=== PATIENT | male | born 1965 | race Caucasian/White ===

== ENCOUNTER 2016-05-09 07:21 | Day surgery (SDC) | payer BC, OTHER ==
[2016-04-20 15:21] VITALS: BMI 38.0
--- NOTE | 2016-04-27 10:17 | DIAGNOSTIC IMAGING REPORT ---
CHEST 2 VIEWS ROUTINE CLINICAL HISTORY: Preoperative chest COMPARISON STUDY: 02/09/2014 FINDINGS: The heart remains borderline enlarged. There is no failure. There is no focal pulmonary consolidation. There are no pleural effusions.[ IMPRESSION: No active disease in the chest. Electronically signed by: Prem Garcia M.D. 04/27/2016 10:15 AM Dictated Date/Time: 04/27/2016 10:14 AM
[2016-04-27 11:23] LABS: BASO % 0.4 %; BASO ABS # 0.03 K/uL (0-0.2); COMPLETE YES; EOS % 3.6 %; HEMATOCRIT 41.9 % (42-52); IG% 0.2 %; LYMPH ABS # 2.52 K/uL (1.2-3.4); MEAN CELL VOLUME 89.5 fL (80-100); MEAN CORPUSCULAR HEMOGLOBIN 31.6 pg (25-34); MEAN CORPUSCULAR HGB CONC 35.3 g/dl (32-36); MEAN PLATELET VOLUME 9.7 fL (7.4-10.4); MONO % 8.1 %; NEUT % 57.7 %; PLATELET COUNT 250 K/uL (130-400); RED BLOOD COUNT 4.68 M/uL (4.7-6.1); WHITE BLOOD COUNT 8.39 K/uL (4.8-10.8)
[2016-04-27 11:57] LABS: CREATININE 0.83 mg/dl (0.60-1.40)
[2016-04-27 12:01] LABS: PROSTATE SPECIFIC ANTIGEN 1.85 ng/ml (0.000-4.000)
[~2016-05-09] VITALS: Ht 182.9 cm; Wt 127.3 kg
[~2016-05-09 07:21] MED LIST: LACTATED RINGER'S 1000ML 1,000 ML IV SCH
--- NOTE | 2016-05-09 07:47 | History & Physical Bridge Note ---
H&P Re-Evaluation Bridge Note: I have examined the patient, reviewed the History & Physical and in the interval since the performance of the History & Physical I have noted the following changes of clinical significance: No changes noted SO at bedside, pt marked
[2016-05-09 07:53] VITALS: BP 148/84; PULSE 72; TEMP 37.1; O2SAT 93; Ht 182.9 cm; Wt 127.3 kg
[2016-05-09] MEDS ORDERED: MIDAZOLAM HCL 1 MG/ML 2ML VIAL ONE (08:46)
[2016-05-09] MEDS ORDERED: FENTANYL CITRATE INJ 50 MCG/1 ML 2 ML VIAL ONE ×3 (08:46→10:51)
[2016-05-09] MEDS ORDERED: DEXAMETHASONE SOD INJ 4 MG/ML VIAL ONE ×2 (09:04→09:41)
[2016-05-09] MEDS ORDERED: LIDOCAINE HCL 2% 2 ML VIAL (20MG/ML) ONE ×2 (09:04→09:56)
[2016-05-09] MEDS ORDERED: PROPOFOL IV EMULSION 10 MG/ML 20 ML VIAL IV ONE ×7 (09:04→10:14)
[2016-05-09] MEDS ORDERED: ONDANSETRON INJ 2 MG/ML 2 ML VIAL ONE ×2 (09:04→10:17)
[2016-05-09] MEDS ORDERED: PROMETHAZINE HCL INJ 25 MG in SODIUM CHLORIDE 0.9% 50ML 50 ML IV ONE (09:30)
[2016-05-09] MEDS ORDERED: CEFAZOLIN SOD 1 GM VIAL ONE (09:41)
[2016-05-09] MEDS ORDERED: SUCCINYLCHOLINE 100MG/5ML SYR IV ONE (09:56)
[2016-05-09] MEDS ORDERED: ROCURONIUM BROMIDE 10 MG/ML 5 ML VIAL ONE (10:18)
[2016-05-09] MEDS ORDERED: KETOROLAC TROMETHAMINE 30 MG/ML VIAL ONE (10:19)
[2016-05-09] MEDS ORDERED: BUPIVACAINE 0.5 % 5 MG/1 ML MPF 30ML VIAL INJ ONE (10:26)
[2016-05-09] MEDS ORDERED: BACITRACIN 50000 UNIT VIAL IR ONE (10:26)
[2016-05-09] MEDS ORDERED: NEOSTIGMINE METHYLSULFATE 5 MG/5 ML SYR ONE (10:32)
[2016-05-09] MEDS ORDERED: GLYCOPYRROLATE INJ 0.2 MG/ML VIAL ONE (10:32)
--- NOTE | 2016-05-09 10:39 | [facility] Post Operative Brief Note ---
Immediate Operative Summary Operative Date May 09, 2016. Pre-Operative Diagnosis Bilateral Inguinal Hernia Post-Operative Diagnosis Bilateral Inguinal Hernia right direct and large lipoma cord to scrotum Procedure(s) Performed Right Open Direct Inguinal Hernia Repair with Mesh, Excision of Large Lipoma of the Cord Surgeon Dr. Heath Marklogic Developer Surgeon(s) 0 Estimated Blood Loss 5 mL Findings large lipoma cord extending to scrotum incarcerated ext ring Specimens A: Lipoma of the Cord
[2016-05-09] MEDS ORDERED: LACTATED RINGER'S 1000ML 1,000 ML IV SCH (10:40)
[2016-05-09] MEDS ORDERED: OXYC-57 PO (10:43)
--- NOTE | 2016-05-09 10:44 | Discharge Instructions ---
Discharge Instructions Visit Reason for Visit: Right Inguinal Hernia Discharge Discharge Diagnosis / Problem: s/p right ing hernia repair open Discharge Goals Goal(s): Decrease discomfort Activity Recommendations Lifting Limitations: no more than 10 pounds Exercise/Sports Limitations: none May Resume Sexual Activity: when tolerated Shower/Bathe: tomorrow Driving or Machine Use: resume 3 days after discharge Anesthesia . Post Anesthesia Instructions: If you have had General Anesthesia or IV Sedation: * Do not drive today. * Resume driving when surgeon permits. * Do not make important decisions or sign legal documents today. * Call surgeon for: 1. Temperature elevations greater than 101 degrees F. 2. Uncontrollable pain. 3. Excessive bleeding. 4. Persistent nausea and vomiting. 5. Medication intolerance (nausea, vomiting or rash). * For nausea and vomiting use only clear liquids such as: tea, soda, bouillon until nausea subsides, then gradually increase diet as tolerated. * If you have any concerns or questions, call your surgeon's office. If physician is unavailable and it is an emergency, call 911 or go to the nearest emergency room. . Instructions / Follow-Up Instructions / Follow-Up call [phone] for any problems return to office 1 week keep ice bag for 24 hr Procedures Procedures Performed: Right Open Direct Inguinal Hernia Repair with Mesh, Excision of Large Lipoma of the Cord Medical Emergencies . Who to Call and When: Medical Emergencies: If at any time you feel your situation is an emergency, please call 911 immediately. . Non-Emergent Contact . . "Provider Documentation" section prepared by Erick Heath.
[2016-05-09] MEDS ORDERED: OXYCODONE/ACETAMINOPHEN 5-325 TAB PO PRN (10:45)
[2016-05-09] MEDS ORDERED: HYDROmorphone INJ 2 MG/ML SYR/VIAL IV PRN (10:45)
[2016-05-09] MEDS ORDERED: ONDANSETRON INJ 2 MG/ML 2 ML VIAL IV PRN ×2 (10:45→11:15)
[2016-05-09] MEDS ORDERED: ALBUTEROL HFA INHALER 8.5 GM INH ONE (11:08)
[2016-05-09] MEDS ORDERED: HYDROmorphone INJ 1 MG/ML SYR IV PRN (11:15)
[2016-05-09] MEDS ORDERED: NALOXONE HCL 0.4 MG/1 ML VIAL/CARP IV PRN (11:15)
[2016-05-09] MEDS ORDERED: FLUMAZENIL 0.1 MG/1 ML 10 ML VIAL IV PRN (11:15)
[2016-05-09] MEDS ORDERED: ATROPINE SULFATE 0.1 MG/ML 5ML SYR IV PRN (11:15)
[2016-05-09] MEDS ORDERED: LABETALOL HCL IV 5 MG/ML 20ML IV PRN (11:15)
[2016-05-09] MEDS ORDERED: EpHEDrine SULFATE INJ 50 MG/ML AMP IV PRN (11:15)
--- NOTE | 2016-05-09 11:51 | OPERATIVE REPORT ---
DATE OF OPERATION: 05/09/2016 SURGEON: Dr. Heath. PREOPERATIVE DIAGNOSIS: Large right inguinal hernia. POSTOPERATIVE DIAGNOSIS: Large right direct inguinal hernia with an extensive large lipoma of the cord to the scrotum. PROCEDURE: Right direct inguinal hernia repair and excision lipoma of the cord with mesh reinforcement. SUMMARY: The patient was brought into the operating room theater. Right lower quadrant was prepped with Betadine solution and properly draped just down to the scrotal area. Preemptive analgesia 0.5% Marcaine without epinephrine was used to infiltrate the skin 2 fingerbreadths medial anterior superior iliac crest. Skin wheal was raised all the way to the subfascial to the external oblique. An oblique incision was made, deepened through subcutaneous tissue. A significant amount of fatty tissue was encountered in this gentleman until we were able to get to the external oblique, which we dissected out to the external ring. More local was used underneath the external oblique, which was opened along the course of its fibers. No definite nerve could be identified. As we dissected all the way down to the external oblique area we could see a significant amount of fatty tissue coming through the external ring, in fact some of it was incarcerated. We were able then to elevate the cord and its structures out of the wound and identified that the patient had a significant lipoma of the cord extending probably to the top of the scrotum as we lifted it out, probably about 25 cm, and multifenestrations around the internal ring that once we were done, we had a significant amount of fatty tissue, probably the size of a softball, that was removed. The patient had no indirect hernia around the internal ring. We then reapproximated some of the transversalis fascia to get some of the fatty tissue out of the way, as was the direct area. I then used a piece of Marlex mesh, 3 x 6, cut part of it out to make a circular cylinder out of it, probably a centimeter or 3 in diameter and placed it in the direct area and held it in place with a tie of 3-0 silk. The Marlex mesh was then brought up onto the field and onlayed to the symphysis pubis, shelving portion of the inguinal ligament above the conjoined tendon, all the way beyond the internal ring, and place subfascial to the external oblique. Prior to closing completely the indirect ring, we then used 3-0 silk suture to take a bite of the onlay and on the plug tying it together. The area was checked for hemostasis and appeared satisfactory. We returned the cord and its structure along on top of the mesh using a topical local and then we basically closed the external oblique over the cord and its structure mesh completely exteriorizing from subcutaneous tissue by closing the external oblique with 3-0 silk, 2-0 Dexon and juani for skin edges. Dressings applied. The procedure was tolerated well by the patient. Estimated blood loss approximately 5 mL. The patient was taken to recovery room in good condition. I attest to the content of the Intraoperative Record and any orders documented therein. Any exceptions are noted below. MTDD
--- NOTE | 2016-05-09 11:58 | Anesthesiology Progress Note ---
Anesthesia Post Op Note Date & Time May 09, 2016 at 11:57 Vital Signs Vital Signs Past 12 Hours Date Time Temp Pulse Resp B/P Pulse Ox O2 Delivery O2 Flow Rate FiO2 05/09/16 11:45 57 14 124/79 97 Nasal Cannula 2 05/09/16 11:30 37.0 62 12 122/78 94 Nasal Cannula 3 05/09/16 11:20 60 15 126/74 92 Nasal Cannula 3 05/09/16 11:10 66 18 137/81 97 Mask 10 05/09/16 11:03 64 15 125/91 98 Mask 10 05/09/16 10:59 140/ 05/09/16 10:56 36.0 66 18 99 Mask 10 05/09/16 07:53 37.1 72 20 148/84 93 Room Air Notes Mental Status: alert / awake / arousable, participated in evaluation Pt Amnestic to Procedure: Yes Nausea / Vomiting: adequately controlled Pain: adequately controlled Airway Patency, RR, SpO2: stable & adequate BP & HR: stable & adequate Hydration State: stable & adequate Anesthetic Complications: no major complications apparent
[2016-05-09 12:00] VITALS: BP 125/76; PULSE 80; TEMP 36.8; O2SAT 97
[2016-05-09 12:31] VITALS: BP 125/76; PULSE 68; TEMP 36.8; O2SAT 96
[2016-05-09 13:02] VITALS: BP 137/76; PULSE 66; O2SAT 95
== END 2016-05-09 13:25 | disposition home or self-care (01) ==
LOC: C.ACU 07:21
PROVIDERS: ATTEND Surgery
DX: K40.90 Unilateral inguinal hernia, without obstruction or gangrene, not specified as recurrent (principal); D17.6 Benign lipomatous neoplasm of spermatic cord; G47.33 Obstructive sleep apnea (adult) (pediatric); E66.9 Obesity, unspecified; Z98.818 Other dental procedure status; Z98.890 Other specified postprocedural states; Z90.89 Acquired absence of other organs; Z82.49 Family history of ischemic heart disease and other diseases of the circulatory system; Z80.0 Family history of malignant neoplasm of digestive organs

== ENCOUNTER 2016-09-26 15:30 | Emergency (ER) | payer BC ==
[~2016-09-26] VITALS: Ht 182.9 cm; Wt 131.4 kg
[~2016-09-26 15:30] MED LIST changes: -LACTATED RINGER'S 1000ML 1,000 ML IV SCH; +OXYC-57 PO
[2016-09-26 15:43] VITALS: TEMP 36.8; Ht 182.9 cm; Wt 131.4 kg
[2016-09-26] MEDS ORDERED: LORAZEPAM 2 MG/ML 1 ML VIAL IV STA (16:32)
[2016-09-26] MEDS ORDERED: SODIUM CHLORIDE 0.9% 1000ML 1,000 ML IV STA (16:32)
[2016-09-26] MEDS ORDERED: IBUP-103 PO (16:36)
[2016-09-26 17:07] LABS: BASO % 0.2 %; BASO ABS # 0.02 K/uL (0-0.2); COMPLETE YES; EOS % 1.1 %; IG% 0.3 %; LYMPH % 22.2 %; LYMPH ABS # 2.08 K/uL (1.2-3.4); MEAN CELL VOLUME 91.3 fL (80-100); MEAN CORPUSCULAR HEMOGLOBIN 32.2 pg (25-34); MEAN CORPUSCULAR HGB CONC 35.2 g/dl (32-36); MEAN PLATELET VOLUME 9.3 fL (7.4-10.4); MONO % 8.3 %; NEUT % 67.9 %; PLATELET COUNT 228 K/uL (130-400); WHITE BLOOD COUNT 9.37 K/uL (4.8-10.8)
[2016-09-26 17:14] LABS: INR 1.1 (0.9-1.1); PROTHROMBIN TIME (PATIENT) 11.3 SECONDS (9.0-12.0)
[2016-09-26 17:20] LABS: URINE APPEARANCE CLEAR (CLEAR); URINE BILIRUBIN NEG (NEG); URINE COLOR YELLOW; URINE NITRITE NEG (NEG); URINE PH 5.5 (4.5-7.5); URINE SPECIFIC GRAVITY 1.032 (1.000-1.030); UROBILINOGEN NEG (NEG)
[2016-09-26 17:21] LABS: MANUAL MICROSCOPIC REQUIRED? NO; REVIEW REQ? NO
[2016-09-26 17:40] LABS: BUN/CREATININE RATIO 21.5 (10-20); CALCIUM 8.5 mg/dl (8.5-10.1); POTASSIUM 3.8 mmol/L (3.5-5.1)
[2016-09-26] MEDS ORDERED: GADAVIST IV PRN (18:15)
--- NOTE | 2016-09-26 18:28 | DIAGNOSTIC IMAGING REPORT ---
Brain MRI WITH AND WITHOUT CONTRAST HISTORY: Amnesia. Evaluate for mass, hemorrhage or pathology TECHNIQUE: Multiplanar multisequence MRI of the brain was performed both before and after the intravenous administration of contrast. COMPARISON STUDY: None. FINDINGS: There is no mass, hematoma, midline shift, acute infarct. The midline structures are intact. There are few punctate foci of T2 hyperintensity seen within the white matter of the frontal lobes. This is nonspecific but favors minimal microvascular ischemic change. Small retention cysts within the left maxillary sinus and mild mucosal thickening within the ethmoid air cells. The mastoid air cells are clear. The major vascular flow-voids at the skull base are well-maintained. The ventricles and sulci are within normal limits for age. IMPRESSION: No acute intracranial abnormality. A few scattered foci of T2 hyperintensity seen within the periventricular and subcortical white matter are nonspecific but favor minimal microvascular ischemic change. Electronically signed by: Fidel Spencer M.D. 09/26/2016 6:27 PM Dictated Date/Time: 09/26/2016 6:22 PM
--- NOTE | 2016-09-26 18:31 | DIAGNOSTIC IMAGING REPORT ---
Brain MRA HISTORY: Amnesia. Evaluate for aneurysm, mass, or pathology TECHNIQUE: 3-D [id number] MRA of the brain was performed without contrast. COMPARISON STUDY: None. FINDINGS: Visualized intracranial internal carotid arteries, distal vertebral arteries, and basilar artery are widely patent. There is no significant stenosis, occlusion, or aneurysm seen within the bilateral ACAs, MCAs, or mushroom grower. IMPRESSION: No significant stenosis, occlusion, or aneurysm within the y[place] of [place]. Electronically signed by: Fidel Spencer M.D. 09/26/2016 6:30 PM Dictated Date/Time: 09/26/2016 6:27 PM
[2016-09-26] MEDS ORDERED: ASPIRIN 81 MG CHEW PO STA (19:08)
--- NOTE | 2016-09-26 20:04 | Medical Consult ---
Consultation Date of Consultation: Sep 26, 2016. Attending Physician: Reason for Consultation: TGA History of Present Illness 51 y/o M who denies active medical issues. Beginning at approximately 8:30 AM he performed some routine tasks such as taking his daughter to summer camp and then meeting with a student of his. He travelled back home at approximately 12: 30 PM and began to realize that he had no recollection of events over the last 4 hours. At that point he had regained his memory and orientation and presented to the hospital. The pt had a complete CVA w/u including an MRI/MRA and carotid dopplers. There was no evidence of acute or prior CVA. He had no focal deficits on exam and was not hypertensive or tachycardic. The case was discussed with a neurologist exhibition designer and the pt will be discharged for outpt f/ u. He has been instructed to take a daily ASA and hold any NSAID use pending follow up. 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 Smoking Status: Current Every Day Smoker Marital Status: Occupation Status: employed Allergies Coded Allergies: No Known Allergies (Unverified , 09/26/16) Home Medications Advil PRN Current Inpatient Medications Current Inpatient Medications Medications (Trade) Dose Ordered Sig/Trey Route Start Time Stop Time Status Last Admin Dose Admin Sodium Chloride 1,000 ml @ 150 mls/hr [id number] STAT IV 09/26/16 16:32 09/26/16 23:11 09/26/16 17:02 150 MLS/HR Gadobutrol (Gadavist) 12 mmol UD PRN IV 09/26/16 18:15 09/30/16 18:14 Review of Systems Constitutional: No fever, No chills, No sweats Eyes: No worsening of vision, No eye pain ENT: No hearing loss, No unusual epistaxis, No nasal symptoms Respiratory: No cough, No sputum, No wheezing Cardiovascular: No chest pain, No orthopnea, No PND Abdomen: No pain, No nausea, No vomiting Musculoskeletal: No joint pain, No muscle pain Genitourinary - Male: No hematuria, No dysuria, No urinary frequency, No urinary urgency Neurologic: + memory loss, No paralysis, No weakness Psychiatric: No depression symptoms, No anhedonism Endocrine: No fatigue, No excessive thirst Hematologic / Lymphatic: No abnormal bleeding/bruising, No clotting problems Integumentary: No rash, No itch Allergic / Immunologic: No environmental allergies, No seasonal allergies, No pet sensitivities Physical Exam Date Time Temp Pulse Resp B/P (MAP) Pulse Ox O2 Delivery O2 Flow Rate FiO2 09/26/16 19:15 77 18 142/98 93 Room Air 09/26/16 17:22 88 18 144/89 93 Room Air 09/26/16 15:43 36.8 83 20 139/91 96 Room Air General Appearance: WD/WN, no apparent distress Head: normocephalic, atraumatic Eyes: normal inspection ENT: normal ENT inspection, hearing grossly normal, TMs normal, pharynx normal Neck: supple, no JVD Respiratory/Chest: chest non-tender, lungs clear, normal breath sounds, no respiratory distress, no accessory muscle use Cardiovascular: regular rate, rhythm, no edema, no gallop, no JVD, no murmur, normal peripheral pulses Abdomen/GI: normal bowel sounds, non tender, soft Back: normal inspection, no CVA tenderness, no muscle spasm Extremities/Musculoskelatal: normal inspection, no calf tenderness, normal capillary refill, no pedal edema, normal range of motion Neurologic/Psych: drywall finisher II-XII nml as tested, no motor/sensory deficits, alert, normal mood/affect, normal reflexes, oriented x 3 Skin: normal color, warm/dry, no rash Laboratory Results Last 24 Hours Test 09/26/16 16:49 09/26/16 17:03 White Blood Count 9.37 K/uL Red Blood Count 4.60 M/uL Hemoglobin 14.8 g/dL Hematocrit 42.0 % Mean Corpuscular Volume 91.3 fL Mean Corpuscular Hemoglobin 32.2 pg Mean Corpuscular Hemoglobin Concent 35.2 g/dl Platelet Count 228 K/uL Mean Platelet Volume 9.3 fL Neutrophils (%) (Auto) 67.9 % Lymphocytes (%) (Auto) 22.2 % Monocytes (%) (Auto) 8.3 % Eosinophils (%) (Auto) 1.1 % Basophils (%) (Auto) 0.2 % Neutrophils # (Auto) 6.36 K/uL Lymphocytes # (Auto) 2.08 K/uL Monocytes # (Auto) 0.78 K/uL Eosinophils # (Auto) 0.10 K/uL Basophils # (Auto) 0.02 K/uL RDW Standard Deviation 43.5 fL RDW Coefficient of Variation 13.3 % Immature Granulocyte % (Auto) 0.3 % Immature Granulocyte # (Auto) 0.03 K/uL Prothrombin Time 11.3 SECONDS Prothromb Time International Ratio 1.1 Activated Partial Thromboplast Time 26.4 SECONDS Partial Thromboplastin Ratio 1.0 Sodium Level 144 mmol/L Potassium Level 3.8 mmol/L Chloride Level 110 mmol/L Carbon Dioxide Level 27 mmol/L Anion Gap 7.0 mmol/L Blood Urea Nitrogen 21 mg/dl Creatinine 1.00 mg/dl Est Creatinine Clear Calc Drug Dose 119.8 ml/min Estimated GFR () 99.2 Estimated GFR (Non- 85.5 BUN/Creatinine Ratio 21.5 Random Glucose 87 mg/dl Calcium Level 8.5 mg/dl Total Bilirubin 0.5 mg/dl Direct Bilirubin 0.1 mg/dl Aspartate Amino Transf (AST/SGOT) 25 U/L Alanine Aminotransferase (ALT/SGPT) 41 U/L Alkaline Phosphatase 58 U/L Total Protein 7.1 gm/dl Albumin 3.9 gm/dl Urine Color YELLOW Urine Appearance CLEAR Urine pH 5.5 Urine Specific [place] 1.032 Urine Protein NEG Urine Glucose (UA) NEG Urine Ketones 1+ Urine Occult Blood TRACE Urine Nitrite NEG Urine Bilirubin NEG Urine Urobilinogen NEG Urine Leukocyte Esterase NEG Urine WBC (Auto) 1-5 /hpf Urine RBC (Auto) 5-10 /hpf Urine Hyaline Casts (Auto) 1-5 /lpf Urine Epithelial Cells (Auto) 5-10 /lpf Urine Bacteria (Auto) NEG Bedside Glucose 88 mg/dl Assessment & Plan 51 y/o M who denies active medical issues. Beginning at approximately 8:30 AM he performed some routine tasks such as taking his daughter to summer camp and then meeting with a student of his. He travelled back home at approximately 12: 30 PM and began to realize that he had no recollection of events over the last 4 hours. At that point he had regained his memory and orientation and presented to the hospital. The pt had a complete CVA w/u including an MRI/MRA and carotid dopplers. There was no evidence of acute or prior CVA. He had no focal deficits on exam and was not hypertensive or tachycardic. The case was discussed with a neurologist exhibition designer and the pt will be discharged for outpt f/ u. He has been instructed to take a daily ASA and hold any NSAID use pending follow up.
--- NOTE | 2016-09-26 21:03 | DIAGNOSTIC IMAGING REPORT ---
BILATERAL CAROTID DOPPLER STUDY HISTORY: Amnesia. Stroke symptoms. COMPARISON: None. TECHNIQUE: Real-time, grayscale, and color Doppler sonography of the carotid arteries was performed. Imaging reviewed in the transverse and longitudinal planes. All measurements were calculated based on NASCET criteria. FINDINGS: Antegrade flow is seen in the bilateral vertebral arteries. The brachial pressures are hemodynamically similar. The peak systolic velocity within the right ICA is 109 cm/s. The right systolic ratio is 1. The peak systolic velocity within the left ICA is 89 cm/s. The left systolic ratio is 0.9. IMPRESSION: No hemodynamically significant stenosis seen within the carotid arteries. Electronically signed by: Fidel Spencer M.D. 09/26/2016 9:01 PM Dictated Date/Time: 09/26/2016 9:01 PM
[2016-09-26 21:15] VITALS: BP 141/73; PULSE 79; O2SAT 92
--- NOTE | 2016-09-27 01:49 | EMERGENCY ROOM VISIT NOTE ---
ED Visit Note First contact with patient: 15:51 Chief Complaint: Memory loss. History of Present Illness: Mr. Reza is a 54-year-old white male who ambulates into the ED complaining of memory loss. Historically patient denies any previous neurological diseases, CVA or any recent trauma. Patient reports remembers waking this morning and leaving home for work, he remembers calling a coworker at work and meeting a quality control assessor to discuss their dissertation. 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 He remembers making the phone call a colleague but does not remember the conversation. He remembers the quality control assessor coming to the office but doesn' t remember their discussion, his visiting him in the office. He goes on to report that he may be experiencing some mild paresthesias to the left side of the face and in the left arm. He has not identified any aggravating or alleviating factors related to the symptoms. He has not taken any medications for the symptoms prior to arrival at the hospital. He denies any recent head trauma, headaches, dizziness, lightheadedness, visual changes, hearing changes, difficult speaking, difficulty swallowing, difficulty ambulating/coordinating body movements, neck pain/stiffness, upper respiratory tract symptoms, chest pain, shortness of breath, abdominal pain, nausea, vomiting, extremity weakness. Review of Systems: As noted above in history of present illness. All body systems were reviewed and found to be negative as noted above. Past Medical History: Status post right rotator cuff repair, right inguinal hernia repair. Current Medications: Ibuprofen. Allergies to Medications: Patient denies. Social History: Patient is currently employed; he feels safe in his home environment; he denies tobacco use. Physical Examination: Vital Signs: Date Time Temp Pulse Resp B/P (MAP) Pulse Ox O2 Delivery O2 Flow Rate FiO2 09/26/16 21:15 79 18 141/73 92 Room Air 09/26/16 19:15 77 18 142/98 93 Room Air 09/26/16 17:22 88 18 144/89 93 Room Air 09/26/16 15:43 36.8 83 20 139/91 96 Room Air GENERAL: 51-year-old male in no acute distress, nontoxic-appearing, afebrile and hemodynamically stable. NEUROLOGICAL: Awake, alert and oriented to person, place and time. Answering questions appropriately and following commands. Normal gait. Good hand eye coordination. No focal motor or sensory deficits. Cranial nerves II through XII grossly intact. Romberg test negative. Pronator drift test negative. Normal rapid all movements of the hands and fingers. Normal heel agustin test. Able to spelling count backwards. Able to draw the face o'clock. SKIN: Warm, dry and pink. No soft tissue eruptions or trauma noted. HEENT: Atraumatic and normocephalic. No facial droops. Able to distinguish light sensations through all dermatomes of the face bilaterally. PERRLA. EOMI without nystagmus. Funduscopic examination is unremarkable with a normal- appearing optic disc and no signs of increasing cranial pressure. Sclera white and conjunctiva pink. No drainage from naris. Oral cavity moist and pink. Airway patent. Pharynx is nonerythematous or edematous. Speech normal. No lymphadenopathy. Trachea midline. No jugular venous distention. No carotid bruits. BACK: No tenderness over the bony cervical, thoracic or lumbar spine. Full range of motion of the cervical spine. No CVA tenderness. THORAX: Lungs sounds are clear to auscultation and equal bilaterally with symmetrical chest wall. No wheezing, rales or rhonchi. No crepitus, tenderness , subcutaneous air or deformities noted. HEART: Regular rate and rhythm. No gallops, rubs or murmurs are appreciated. PMI is not displaced. No lifts, heaves or thrills. ABDOMEN: Flat, soft and nontender. Positive bowel sounds in all quadrants. No guarding, rigidity or organomegaly. EXTREMITIES: Moves all extremities well on command and with purpose. All distal neurovascular statuses are intact and equal bilaterally. No calf tenderness or cords. 5/5 muscle strength in all movements of the shoulders, elbows, forearms, wrists, hips, ankles and feet. No calf tenderness or cords. No dependent edema. ED Course: Patient is assessed as noted above. Patient's medication list was reviewed. Laboratory Testing: Test 09/26/16 16:49 09/26/16 17:03 Range/Units White Blood Count 9.37 4.8-10.8 K/uL Red Blood Count 4.60 4.7-6.1 M/uL Hemoglobin 14.8 14.0-18.0 g/dL Hematocrit 42.0 42-52 % Mean Corpuscular Volume 91.3 80-100 fL Mean Corpuscular Hemoglobin 32.2 25-34 pg Mean Corpuscular Hemoglobin Concent 35.2 32-36 g/dl Platelet Count 228 130-400 K/uL Mean Platelet Volume 9.3 7.4-10.4 fL Neutrophils (%) (Auto) 67.9 % Lymphocytes (%) (Auto) 22.2 % Monocytes (%) (Auto) 8.3 % Eosinophils (%) (Auto) 1.1 % Basophils (%) (Auto) 0.2 % Neutrophils # (Auto) 6.36 1.4-6.5 K/uL Lymphocytes # (Auto) 2.08 1.2-3.4 K/uL Monocytes # (Auto) 0.78 0.11-0.59 K/uL Eosinophils # (Auto) 0.10 0-0.5 K/uL Basophils # (Auto) 0.02 0-0.2 K/uL RDW Standard Deviation 43.5 36.4-46.3 fL RDW Coefficient of Variation 13.3 11.5-14.5 % Immature Granulocyte % (Auto) 0.3 % Immature Granulocyte # (Auto) 0.03 0.00-0.02 K/uL Prothrombin Time 11.3 9.0-12.0 SECONDS Prothromb Time International Ratio 1.1 0.9-1.1 Activated Partial Thromboplast Time 26.4 21.0-31.0 SECONDS Partial Thromboplastin Ratio 1.0 Sodium Level 144 136-145 mmol/L Potassium Level 3.8 3.5-5.1 mmol/L Chloride Level 110 98-107 mmol/L Carbon Dioxide Level 27 21-32 mmol/L Anion Gap 7.0 3-11 mmol/L Blood Urea Nitrogen 21 7-18 mg/dl Creatinine 1.00 0.60-1.40 mg/dl Est Creatinine Clear Calc Drug Dose 119.8 ml/min Estimated GFR () 99.2 Estimated GFR (Non- 85.5 BUN/Creatinine Ratio 21.5 10-20 Random Glucose 87 70-99 mg/dl Calcium Level 8.5 8.5-10.1 mg/dl Total Bilirubin 0.5 0.2-1 mg/dl Direct Bilirubin 0.1 0-0.2 mg/dl Aspartate Amino Transf (AST/SGOT) 25 15-37 U/L Alanine Aminotransferase (ALT/SGPT) 41 12-78 U/L Alkaline Phosphatase 58 45-117 U/L Total Protein 7.1 6.4-8.2 gm/dl Albumin 3.9 3.4-5.0 gm/dl Urine Color YELLOW Urine Appearance CLEAR CLEAR Urine pH 5.5 4.5-7.5 Urine Specific [place] 1.032 1.000-1.030 Urine Protein NEG NEG Urine Glucose (UA) NEG NEG Urine Ketones 1+ NEG Urine Occult Blood TRACE NEG Urine Nitrite NEG NEG Urine Bilirubin NEG NEG Urine Urobilinogen NEG NEG Urine Leukocyte Esterase NEG NEG Urine WBC (Auto) 1-5 0-5 /hpf Urine RBC (Auto) 5-10 0-4 /hpf Urine Hyaline Casts (Auto) 1-5 0-5 /lpf Urine Epithelial Cells (Auto) 5-10 0-5 /lpf Urine Bacteria (Auto) NEG NEG Bedside Glucose 88 70-99 mg/dl Brain MRI with and without Contrast: Was reviewed by myself and read by the radiologist and shows no acute intracranial abnormality. A few scattered foci of T2 hyperintensity seen within the periventricular and subcortical white matter are nonspecific but favor minimal microvascular ischemic changes. Brain MRA: Was reviewed by myself and read by the radiologist and shows no significant stenosis, occlusion's or aneurysms within the osage of [place]. Patient was hydrated with normal saline. He received 0.5 mg of Ativan IV for MRI anxiety. After his MRI he received 324 mg of aspirin by mouth. Patient was reassessed multiple times during his stay in the emergency department. Patient's case was reviewed with Dr. Enrique; we agreed on diagnostic approach , treatment, disposition and plan. Patient's case was consulted with Dr. Wild Santiago, neurologist; she recommended that the patient be admitted for further evaluation and care. Patient's case was consulted with case management and Dr. Serrano, [facility]; initially he refused to admit the patient. He then spoke with Dr. Pinto, on-call neurologist. He then ordered a bilateral carotid Doppler ultrasound study. He then reported to me that this was a normal study and the patient could be discharged to home. He requested that I write the patient's discharge instructions to include using 81 mg of aspirin daily, no ibuprofen use and outpatient follow-up with Dr. Pinto. Clinical Impression: Total global amnesia. Decision-Making: Initially my differential diagnosis I considered CVA, TIA, migraine variant, complex partial seizure, basilar arterial thrombosis and other causes. Disposition: At Dr. Horton request patient was discharged home accompanied by his . Plan: At Dr. Horton's request patient was instructed to use 81 mg of aspirin daily, he was encouraged to avoid ibuprofen and he was encouraged to follow-up with Dr. Pinto.
== END 2016-09-26 21:45 | disposition home or self-care (01) ==
LOC: C.EDB 15:34 → C.EDC 21:45
DX: G45.4 Transient global amnesia (principal); F41.9 Anxiety disorder, unspecified; Z98.890 Other specified postprocedural states